=== PATIENT | female | born 1955 | race Caucasian/White ===

== ENCOUNTER 2018-06-20 08:33 | Emergency (ER) | payer MEDICARE, MEDICAID ==
[~2018-06-20] VITALS: Ht 172.7 cm; Wt 83.6 kg
[~2018-06-20 08:33] MED LIST: ALPR0.5T10 PO; AMIT100T2 PO; BUPR300T54 PO; CALC-854 PO; GABA300C PO; LEVO200T PO; PARO-62 PO; PARO40TA4 PO; TEMA15CA5 PO
[2018-06-20 08:34] VITALS: BP 141/60
[2018-06-20] MEDS ORDERED: traMADol 50MG tablet PO ONE (08:45)
[2018-06-20] MEDS ORDERED: TRAM50TA2 PO (09:06)
[2018-06-20] MEDS ORDERED: ondansetron 4mg rapidly disintigrating tab PO ONE (09:15)
== END 2018-06-20 10:42 | disposition home or self-care (01) ==
LOC: ER 08:34
DX: S52.502A Unspecified fracture of the lower end of left radius, initial encounter for closed fracture (principal); S52.602A Unspecified fracture of lower end of left ulna, initial encounter for closed fracture; Z79.899 Other long term (current) drug therapy; F41.9 Anxiety disorder, unspecified; F32.9 Major depressive disorder, single episode, unspecified; M81.0 Age-related osteoporosis without current pathological fracture; W01.198A Fall on same level from slipping, tripping and stumbling with subsequent striking against other object, initial encounter; Y93.89 Activity, other specified; Y92.89 Other specified places as the place of occurrence of the external cause; Y99.8 Other external cause status
CPT/HCPCS: 29125; 73110; 99284

== ENCOUNTER 2018-06-30 11:21 | Day surgery (SDC) | payer MEDICARE, MEDICAID ==
[2018-06-28 16:38] LABS: BASOPHILS % (AUTO) 0.3 % (0-1); EOSINOPHILS # (AUTO) 0.1 X10'3 (0-0.9); EOSINOPHILS % (AUTO) 1.1 % (0-6); LYMPHOCYTES # (AUTO) 2.2 X10'3 (1.1-4.8); LYMPHOCYTES % (AUTO) 31.4 % (21-51); MEAN CORPUSCULAR HGB CONC 32.5 % (33.0-36.5); MEAN CORPUSCULAR VOLUME 92.4 FL (78-98); MEAN PLATELET VOLUME 8.7 FL (7.4-10.4); MONOCYTES # (AUTO) 0.5 X10'3 (0-0.9); MONOCYTES % (AUTO) 6.5 % (2-12); NEUTROPHILS # (AUTO) 4.2 X10'3 (1.8-7.7); NEUTROPHILS % (AUTO) 60.7 % (42-75); PRE OP HEMATOCRIT 39.3 % (35.0-45.0); PRE OP HEMOGLOBIN 12.8 g/dL (12.0-16.0); PRE OP PLATELET COUNT 199 X10'3 (140-440); RED BLOOD COUNT 4.25 X10'6 (4.20-5.60); RED CELL DISTRIBUTION WIDTH 13.3 % (11.5-14.5)
[2018-06-28 16:57] LABS: ALBUMIN 3.3 G/DL (3.4-5.0); ALKALINE PHOSPHATASE 44 IU/L (46-116); BLOOD UREA NITROGEN 11 MG/DL (7-18); BUN/CREATININE RATIO 14.7 (6.6-38.0); CALCIUM 7.8 MG/DL (8.5-10.1); CHLORIDE 106 MMOL/L (99-107); CREATININE 0.75 MG/DL (0.40-0.90); PRE OP ALT 40 U/L (30-65); PRE OP ANION GAP 7 (8-16); PRE OP AST 26 U/L (10-37); PRE OP BILIRUB, TOTAL 0.4 MG/DL (0.0-1.0); PRE OP GLUCOSE 82 MG/DL (70-104); PRE OP SODIUM 140 MMOL/L (135-145); TOTAL CARBON DIOXIDE 26.8 MMOL/L (24-32); TOTAL PROTEIN 6.5 G/DL (6.4-8.2); eGFR 78 ML/MIN
[2018-06-28 17:02] LABS: HEMOGLOBIN A1C 4.8 % (4.5-6.2)
[2018-06-30] VITALS (7 sets, daily range): BP systolic 112–121; BP diastolic 64–70
[~2018-06-30] VITALS: Ht 172.7 cm; Wt 82.9 kg
[~2018-06-30 11:21] MED LIST changes: -AMIT100T2 PO; +DIPH1TAB PO; -PARO40TA4 PO; +SUVO10TA PO; -TEMA15CA5 PO; +TRAM50TA2 PO; +cefazolin/dext.iso 2gm/100 ML IV ONE; +famotidine 20mg tablet PO ONE; +ringers solution, lacted 1,000 ML IV SCH; +vancomycin inj 1,500 MG in normal saline 300ml IV soln IV ONE
[2018-06-30] MEDS ORDERED: BUPIVAcaine/PF 2.5mg/ml (0.25%) 10ml vial ONE (14:32)
[2018-06-30] MEDS ORDERED: fentaNYL/PF 50MCG/1 ML 2ML syringe ONE ×2 (15:11→17:07)
[2018-06-30] MEDS ORDERED: midazolam 2 mg/2 ml injection ONE ×2 (15:11→15:12)
[2018-06-30] MEDS ORDERED: propofol inj 20 ML IV ONE (15:13)
[2018-06-30] MEDS ORDERED: ROPIVAcaine 0.5% (5mg/ml) 30ml vial ONE (15:15)
[2018-06-30] MEDS ORDERED: cloNIDine hcl/PF 100mcg/ml inj ONE (15:17)
[2018-06-30] MEDS ORDERED: sevoflurane 250ml liquid IH ONE (15:26)
[2018-06-30] MEDS ORDERED: dexamethasone sod phosphate 10mg/ml inj ONE (15:26)
[2018-06-30] MEDS ORDERED: ondansetron/PF 4mg/2ml inj ONE (17:26)
[2018-06-30] MEDS ORDERED: ePHEDrine 50MG/ML INJ. ONE (17:26)
[2018-06-30] MEDS ORDERED: proCHLORperazine 10 MG/2 ml inj IV PRN (17:50)
[2018-06-30] MEDS ORDERED: ondansetron/PF 4mg/2ml inj IV PRN (17:50)
[2018-06-30] MEDS ORDERED: morphine 4 MG/ML inj SYRINge IV PRN ×2 (17:50)
[2018-06-30] MEDS ORDERED: meperidine/PF 25mg/ml syringe IV PRN ×2 (17:50)
== END 2018-06-30 18:10 | disposition home or self-care (01) ==
LOC: PAS 11:21
PROVIDERS: ATTEND Orthopaedic Surgery
DX: S52.572A Other intraarticular fracture of lower end of left radius, initial encounter for closed fracture (principal); M81.0 Age-related osteoporosis without current pathological fracture; F41.8 Other specified anxiety disorders; E03.9 Hypothyroidism, unspecified; M79.7 Fibromyalgia; I10 Essential (primary) hypertension; E11.9 Type 2 diabetes mellitus without complications; E78.5 Hyperlipidemia, unspecified; G47.33 Obstructive sleep apnea (adult) (pediatric); G89.29 Other chronic pain; G89.18 Other acute postprocedural pain; F32.9 Major depressive disorder, single episode, unspecified; Z90.49 Acquired absence of other specified parts of digestive tract; Z87.891 Personal history of nicotine dependence; Z96.642 Presence of left artificial hip joint; Z79.891 Long term (current) use of opiate analgesic; Z79.2 Long term (current) use of antibiotics; Z98.84 Bariatric surgery status; Z90.89 Acquired absence of other organs; Z98.890 Other specified postprocedural states; Z79.899 Other long term (current) drug therapy; W01.0XXA Fall on same level from slipping, tripping and stumbling without subsequent striking against object, initial encounter; Y93.41 Activity, dancing; Y92.89 Other specified places as the place of occurrence of the external cause; Y99.8 Other external cause status
CPT/HCPCS: 25609; 36415; 64417; 71046; 80053; 83036; 85025; 93005; A6257; A6449; C1713; J0690; J0735; J1100; J2250; J2405; J2704; J3010; J3370; A7000; J2795; J3490; J7120

== ENCOUNTER 2018-07-13 13:39 | Outpatient (CLI) | payer MEDICARE, MEDICAID ==
[~2018-07-13 13:39] MED LIST changes: -cefazolin/dext.iso 2gm/100 ML IV ONE; -famotidine 20mg tablet PO ONE; -ringers solution, lacted 1,000 ML IV SCH; -vancomycin inj 1,500 MG in normal saline 300ml IV soln IV ONE
[2018-07-13 13:41] VITALS: BP 141/79
== END 2018-07-13 15:15 | disposition home or self-care (01) ==
LOC: ORTHO 13:39
PROVIDERS: ATTEND Nurse Practitioner Family
DX: S52.592G Other fractures of lower end of left radius, subsequent encounter for closed fracture with delayed healing (principal); S52.692G Other fracture of lower end of left ulna, subsequent encounter for closed fracture with delayed healing; F32.9 Major depressive disorder, single episode, unspecified; M25.432 Effusion, left wrist; Z60.2 Problems related to living alone; Z87.891 Personal history of nicotine dependence; Z96.642 Presence of left artificial hip joint; W01.0XXD Fall on same level from slipping, tripping and stumbling without subsequent striking against object, subsequent encounter
CPT/HCPCS: 73100; 99214; A4590

== ENCOUNTER 2018-07-27 11:22 | Outpatient (CLI) | payer MEDICARE, MEDICAID ==
[2018-07-27 11:11] VITALS: BP 105/65
== END 2018-07-27 12:02 | disposition home or self-care (01) ==
LOC: ORTHO 11:22
PROVIDERS: ATTEND Nurse Practitioner Family
DX: S52.592G Other fractures of lower end of left radius, subsequent encounter for closed fracture with delayed healing (principal); S52.692G Other fracture of lower end of left ulna, subsequent encounter for closed fracture with delayed healing; Z79.899 Other long term (current) drug therapy; W01.0XXD Fall on same level from slipping, tripping and stumbling without subsequent striking against object, subsequent encounter
CPT/HCPCS: 73100; 99213; A4590

== ENCOUNTER 2018-08-17 10:42 | Outpatient (CLI) | payer MEDICARE, MEDICAID | END 2018-08-17 11:27 | disposition home or self-care (01) | LOC: ORTHO 10:42 | PROVIDERS: ATTEND Nurse Practitioner Family | DX: S52.592G Other fractures of lower end of left radius, subsequent encounter for closed fracture with delayed healing (principal); S52.692G Other fracture of lower end of left ulna, subsequent encounter for closed fracture with delayed healing; Z96.642 Presence of left artificial hip joint; Z98.84 Bariatric surgery status; W01.0XXD Fall on same level from slipping, tripping and stumbling without subsequent striking against object, subsequent encounter | CPT/HCPCS: 73100; 99213; A4590 ==

== ENCOUNTER 2018-09-07 09:54 | Outpatient (CLI) | payer MEDICARE, MEDICAID ==
[2018-09-07 09:51] VITALS: BP 114/62
== END 2018-09-07 10:58 | disposition home or self-care (01) ==
LOC: ORTHO 09:54
PROVIDERS: ATTEND Nurse Practitioner Family
DX: S52.592K Other fractures of lower end of left radius, subsequent encounter for closed fracture with nonunion (principal); S52.692G Other fracture of lower end of left ulna, subsequent encounter for closed fracture with delayed healing; F32.9 Major depressive disorder, single episode, unspecified; Z87.891 Personal history of nicotine dependence; Z60.2 Problems related to living alone; W01.0XXD Fall on same level from slipping, tripping and stumbling without subsequent striking against object, subsequent encounter
CPT/HCPCS: 73100; G0463

== ENCOUNTER 2018-10-03 10:21 | Outpatient (CLI) | payer MEDICARE, MEDICAID | END 2018-10-03 11:54 | disposition home or self-care (01) | LOC: ORTHO 10:21 | PROVIDERS: ATTEND Nurse Practitioner Family | DX: S52.592K Other fractures of lower end of left radius, subsequent encounter for closed fracture with nonunion (principal); S52.692 Other fracture of lower end of left ulna; F32.9 Major depressive disorder, single episode, unspecified; Z87.891 Personal history of nicotine dependence; Z60.2 Problems related to living alone; W01.0XXD Fall on same level from slipping, tripping and stumbling without subsequent striking against object, subsequent encounter | CPT/HCPCS: 73100; 99213; A4590 ==

== ENCOUNTER 2018-10-12 13:47 | Outpatient (CLI) | payer MEDICARE, MEDICAID ==
[2018-10-12 13:43] VITALS: BP 106/66
== END 2018-10-12 14:47 | disposition home or self-care (01) ==
LOC: ORTHO 13:47
PROVIDERS: ATTEND Nurse Practitioner Family
DX: S52.592K Other fractures of lower end of left radius, subsequent encounter for closed fracture with nonunion (principal); S52.692 Other fracture of lower end of left ulna; F32.9 Major depressive disorder, single episode, unspecified; F17.200 Nicotine dependence, unspecified, uncomplicated; Z60.2 Problems related to living alone; Z96.642 Presence of left artificial hip joint; W01.0XXD Fall on same level from slipping, tripping and stumbling without subsequent striking against object, subsequent encounter
CPT/HCPCS: 99213

== ENCOUNTER 2018-10-24 09:55 | Outpatient (CLI) | payer MEDICARE, MEDICAID ==
[2018-10-24 09:57] VITALS: BP 110/73
== END 2018-10-24 10:26 | disposition home or self-care (01) ==
LOC: ORTHO 09:55
PROVIDERS: ATTEND Nurse Practitioner Family
DX: S52.592G Other fractures of lower end of left radius, subsequent encounter for closed fracture with delayed healing (principal); S52.692G Other fracture of lower end of left ulna, subsequent encounter for closed fracture with delayed healing; X58.XXXD Exposure to other specified factors, subsequent encounter; Z98.84 Bariatric surgery status
CPT/HCPCS: 73100; 99213

== ENCOUNTER 2018-11-11 10:30 | Emergency (ER) | payer MEDICARE, MEDICAID ==
[~2018-11-11] VITALS: Ht 172.7 cm; Wt 79.1 kg
[2018-11-11] MEDS ORDERED: CELE-193 PO (12:09)
[2018-11-11 12:53] VITALS: BP 127/55
== END 2018-11-11 12:55 | disposition home or self-care (01) ==
LOC: ER 10:30
DX: R07.81 Pleurodynia (principal); I10 Essential (primary) hypertension; G43.909 Migraine, unspecified, not intractable, without status migrainosus; E78.00 Pure hypercholesterolemia, unspecified; K21.9 Gastro-esophageal reflux disease without esophagitis; E11.9 Type 2 diabetes mellitus without complications; E03.9 Hypothyroidism, unspecified; M19.90 Unspecified osteoarthritis, unspecified site; G89.29 Other chronic pain; M54.9 Dorsalgia, unspecified; M81.0 Age-related osteoporosis without current pathological fracture; Z90.49 Acquired absence of other specified parts of digestive tract; W01.0XXA Fall on same level from slipping, tripping and stumbling without subsequent striking against object, initial encounter; Y93.89 Activity, other specified; Y92.098 Other place in other non-institutional residence as the place of occurrence of the external cause; Y99.8 Other external cause status
CPT/HCPCS: 71046; 99284

== ENCOUNTER 2018-11-16 11:32 | Outpatient (CLI) | payer MEDICARE, MEDICAID ==
[~2018-11-16 11:32] MED LIST changes: +CELE-193 PO
[2018-11-16 11:42] VITALS: BP 125/70
== END 2018-11-16 12:41 | disposition home or self-care (01) ==
LOC: ORTHO 11:32
PROVIDERS: ATTEND Orthopaedic Surgery
DX: S52.592D Other fractures of lower end of left radius, subsequent encounter for closed fracture with routine healing (principal); Z98.84 Bariatric surgery status; Z96.642 Presence of left artificial hip joint; X58.XXXD Exposure to other specified factors, subsequent encounter
CPT/HCPCS: 73110; 99213

== ENCOUNTER 2023-01-24 10:01 | Emergency (ER) | payer BC, MEDICAID ==
[~2023-01-24] VITALS: Ht 172.7 cm; Wt 77.0 kg
[~2023-01-24 10:01] MED LIST changes: -BUPR300T54 PO; +BUPR300T99 PO; -CELE-193 PO; +PARO-141 PO; -PARO-62 PO
[2023-01-24 10:05] VITALS: BP 156/76
[2023-01-24] MEDS ORDERED: celeCOXIB 100mg capsule PO ONE (12:10)
--- NOTE | 2023-01-24 12:14 | NUR ---
Waiting for med to be delivered from pharmacy.
[2023-01-24] MEDS ORDERED: CELE-193 PO (13:43)
== END 2023-01-24 13:54 | disposition home or self-care (01) ==
LOC: ER 10:02
DX: S30.0XXA Contusion of lower back and pelvis, initial encounter (principal); G43.909 Migraine, unspecified, not intractable, without status migrainosus; E78.00 Pure hypercholesterolemia, unspecified; I10 Essential (primary) hypertension; K21.9 Gastro-esophageal reflux disease without esophagitis; E11.9 Type 2 diabetes mellitus without complications; E03.9 Hypothyroidism, unspecified; M19.90 Unspecified osteoarthritis, unspecified site; Z90.49 Acquired absence of other specified parts of digestive tract; W19.XXXA Unspecified fall, initial encounter; Y93.89 Activity, other specified; Y92.89 Other specified places as the place of occurrence of the external cause; Y99.8 Other external cause status
CPT/HCPCS: 72220; 73502; 99284

== ENCOUNTER 2024-09-27 08:50 | Day surgery (SDC) | payer BC, MEDICAID ==
[2024-09-24 13:16] LABS: BASOPHILS # (AUTO) 0.1 X10'3 (0-0.2); BASOPHILS % (AUTO) 0.8 % (0-1); EOSINOPHILS # (AUTO) 0.1 X10'3 (0-0.9); EOSINOPHILS % (AUTO) 1.2 % (0-6); LYMPHOCYTES # (AUTO) 3.4 X10'3 (1.1-4.8); LYMPHOCYTES % (AUTO) 29.6 % (21-51); MEAN CORPUSCULAR HEMOGLOBIN 30.8 PG (27.0-31.0); MEAN CORPUSCULAR HGB CONC 32.5 g/dL (33.0-36.5); MEAN CORPUSCULAR VOLUME 94.5 FL (78-98); MONOCYTES # (AUTO) 0.7 X10'3 (0-0.9); MONOCYTES % (AUTO) 6.5 % (2-12); NEUTROPHILS % (AUTO) 61.9 % (42-75); PRE OP HEMATOCRIT 44.7 % (35.0-45.0); PRE OP HEMOGLOBIN 14.5 g/dL (12.0-16.0); PRE OP PLATELET COUNT 216 X10'3 (140-440); PRE OP WHITE BLOOD COUNT 11.4 10'3 (4.8-10.8); RED BLOOD COUNT 4.73 X10'6 (4.20-5.60); RED CELL DISTRIBUTION WIDTH 13.7 % (11.5-14.5)
[2024-09-24 13:24] LABS: ALBUMIN 3.7 G/DL (3.4-5.0); ALBUMIN/GLOBULIN RATIO 1.1 (1.1-1.5); ALKALINE PHOSPHATASE 84 IU/L (46-116); BLOOD UREA NITROGEN 20 MG/DL (7-18); BUN/CREATININE RATIO 21.1 (10.0-20.0); CALCIUM 8.3 MG/DL (8.5-10.1); CHLORIDE 112 MMOL/L (99-107); CREATININE 0.95 MG/DL (0.40-0.90); PRE OP ANION GAP 6 (8-16); PRE OP AST 43 U/L (10-37); PRE OP BILIRUB, TOTAL 0.5 MG/DL (0.0-1.0); PRE OP GLUCOSE 95 MG/DL (70-104); PRE OP POTASSIUM 3.9 MMOL/L (3.4-5.1); PRE OP SODIUM 150 MMOL/L (135-145); TOTAL CARBON DIOXIDE 31.8 MMOL/L (24-32); TOTAL PROTEIN 7.1 G/DL (6.4-8.2); eGFR 58 ML/MIN
[2024-09-24 13:37] LABS: PRE OP ALT 84 U/L (30-65)
[2024-09-27] VITALS (10 sets, daily range): BP systolic 118–164; BP diastolic 62–95; PULSE 67–82; RESP 13–21; TEMP 98.8; O2SAT 90–98
[~2024-09-27] VITALS: Ht 172.7 cm; Wt 73.0 kg
[~2024-09-27 08:50] MED LIST changes: -ALPR0.5T10 PO; +ALPR0.5T9 PO; +BACL10TA2 PO; -BUPR300T99 PO; -CALC-854 PO; +CELE-148 PO; +DICY20TA2 PO; -GABA300C PO; +LEVO150T8 PO; -LEVO200T PO; +MIRT-88 PO; -PARO-141 PO; +PARO40TA4 PO; -SUVO10TA PO; -TRAM50TA2 PO; +[UNRECOGNIZED DRUG - CODE]; +ringers solution, lacted 1,000 ML IV SCH
[2024-09-27] MEDS ORDERED: BUPIVAcaine 2.5mg/ml inj 50ml vial (contains preservative) ONE (09:13)
[2024-09-27] MEDS ORDERED: bacitracin 15gm ointment TP ONE (09:13)
[2024-09-27] MEDS ORDERED: morphine 2 MG/ML inj. syringe IV PRN (09:20)
[2024-09-27] MEDS ORDERED: ondansetron/PF 4mg/2ml inj IV PRN (09:20)
[2024-09-27] MEDS ORDERED: morphine 4 MG/ML inj SYRINge IV PRN (09:20)
[2024-09-27] MEDS ORDERED: hydrALAZINE 20mg/ml inj. IV PRN (09:20)
[2024-09-27] MEDS ORDERED: ringers solution, lacted 1,000 ML IV SCH (09:20)
[2024-09-27] MEDS ORDERED: fentaNYL/PF 50MCG/1 ML 2ML syringe IV PRN ×2 (09:20)
[2024-09-27] MEDS ORDERED: labetalol 20mg/4ml (5mg/ml) syringe IV PRN (09:20)
[2024-09-27] MEDS: ceFAZolin 2gm in dextrose, iso 50 ML IV ONE (09:27)
[2024-09-27] MEDS: famotidine 20mg tablet PO ONE (09:34)
[2024-09-27] MEDS ORDERED: sevoflurane 250ml liquid IH ONE (10:20)
[2024-09-27] MEDS ORDERED: fentaNYL/PF 50MCG/1 ML 2ML syringe ONE ×2 (10:24→11:54)
[2024-09-27] MEDS ORDERED: ROPIVAcaine 0.5% (5mg/ml) 30ml vial ONE (10:25)
[2024-09-27] MEDS ORDERED: midazolam 1 mg/ML 2ml injection ONE (10:25)
[2024-09-27] MEDS ORDERED: ondansetron/PF 4mg/2ml inj ONE (10:25)
[2024-09-27] MEDS ORDERED: propofol inj 20 ML IV ONE (10:25)
[2024-09-27] MEDS ORDERED: dexamethasone sod phosphate 4mg/ml inj. ONE (10:25)
[2024-09-27] MEDS ORDERED: LIDOcaine 2% (20mg/ml) 5ml vial ONE (10:25)
[2024-09-27] MEDS ORDERED: acetaminophen 1,000mg/100ml IV 100 ML IV ONE (10:39)
[2024-09-27] MEDS ORDERED: labetalol 20mg/4ml (5mg/ml) syringe IV ONE (11:38)
== END 2024-09-27 13:52 | disposition home or self-care (01) ==
LOC: PAS 08:50
PROVIDERS: ATTEND Podiatrist Foot & Ankle Surgery
DX: M19.072 Primary osteoarthritis, left ankle and foot (principal); M77.42 Metatarsalgia, left foot; M20.22 Hallux rigidus, left foot; M72.2 Plantar fascial fibromatosis; M20.12 Hallux valgus (acquired), left foot; M24.875 Other specific joint derangements left foot, not elsewhere classified; Z79.899 Other long term (current) drug therapy; Z98.890 Other specified postprocedural states; Z98.84 Bariatric surgery status; Z87.891 Personal history of nicotine dependence
CPT/HCPCS: 20902; 28112; 28750; 36415; 64450; 80053; 82948; 85025; 93005; A6223; C1713; J0131; J0690; J1100; J2003; J2250; J2405; J2704; J2795; J3010; J3490; J7030; J7120; Z7506; Z7508; Z7512; A4215; A4618; A6449; A7000

== ENCOUNTER 2025-05-08 09:13 | Emergency (ER) | payer BC, MEDICAID ==
[~2025-05-08] VITALS: Ht 167.6 cm; Wt 77.3 kg
[~2025-05-08 09:13] MED LIST changes: +ASPI-1265 PO; +DEUT12TA PO; -DICY20TA2 PO; -[UNRECOGNIZED DRUG - CODE]; -ringers solution, lacted 1,000 ML IV SCH
--- NOTE | 2025-05-08 09:36 | Physician Documentation ---
History of Present Illness ~ Chief Complaint: Shoulder pain Stated Complaint: FALL SHOULDER PAIN Time Seen by MD: 09:32 Primary Medical Doctor: Dr. Kelly HPI 69-year-old female presents to the ED after falling backwards and bracing with her right arm this morning. She reports severe pain in her shoulder and upper right arm. Denies any numbness or tingling. Patient does have a history of osteoporosis and denies being a diabetic. Denies any head strike negative on thinners Day of Onset: May 08, 2025 Tetanus within 5 years?: Yes Medication Reconciliation Allergies: Uncoded Allergies: SULFA (Allergy, Mild, RASH, 10/11/24) Scheduled Alprazolam (Alprazolam), 1 TAB PO TID, (Reported) Aspirin (Aspirin), 1 TAB PO DAILY, (Reported) Deutetrabenazine (Austedo), 30 MG PO DAILY, (Reported) Levothyroxine Sodium (Levothyroxine Sodium), 1 TAB PO DAILY, (Reported) Mirtazapine (Mirtazapine), 1 TAB PO HS, (Reported) Paroxetine HCl (Paroxetine HCl), 1 TAB PO DAILY, (Reported) Scheduled PRN Baclofen (Baclofen), 1 TAB PO BID PRN for muscle spasm, (Reported) Celecoxib (Celecoxib), 1 CAP PO BID PRN for pain, (Reported) Diphenoxylate HCl/Atropine (Lomotil 2.5-0.025 mg Tablet), 1 TAB PO Q8H PRN for diarrhea, (Reported) Hydrocodone Bit/Acetaminophen 5/325 MG ([place] 5/325 MG), 1 TAB PO Q6H PRN for pain Past Medical History Past Medical History: Headache, Migraine, Peripheral Neuropathy, Vertigo, Cataracts, High Cholesterol, Hypertension, Sleep Apnea, GERD, UTI, Diabetes, Hypothyroidism, Arthritis, Chronic Pain, Chronic Back Pain, Extremity Fracture, Fibromyalgia, Osteoporosis, MRSA Abscess, Anxiety, Depression Past Surgical History: cholecystectomy, orthopedic surgeries Alcohol Use: None Drug Use: marijuana Lives with: Alone Lives In: Home Occupation: disabled Review of Systems All Other Systems at this time: Reviewed and Negative ROS As stated above in the HPI, otherwise all systems are reviewed and negative. Physical Exam Vital Signs: Temperature: 97.5, Source: Temporal, Heart Rate: 85, Respiratory Rate: 16, BP: 172/102, Pulse Oximetry: 99, Weight: 77.270 Oxygen Flow Rate: 0 Physical Exam General: Alert, no apparent distress. Respiratory: Lungs clear, no respiratory distress. Extremities: Decreased range of motion notable deformity in the right humeral region, Neurologic: Oriented x4. Psychiatric: Normal mood and affect. Skin: Normal color, warm and dry. No edema, no ecchymosis. Progress Results/Orders Results/Orders Completed Orders - RICO HYLTON TICKET SCHEDULER Oxycodone/Acetaminophen Tablet (Percocet (05/08/25 09:40) Medications Received in ER Medications (Trade) Dose Ordered Sig/Roverto Route PRN Reason Start Time Stop Time Status Last Admin Dose Admin (Percocet 10-325 mg tab) 1 tab ONCE ONCE PO 05/08/25 09:40 05/08/25 09:41 DC 05/08/25 09:49 1 TAB Vital Signs 05/08/25 05/08/25 05/08/25 09:16 09:39 09:49 Temp 97.5 Pulse 85 Resp 16 18 18 B/P (MAP) 172/102 Pulse Ox 99 O2 Flow Rate 0 Medical Decision Making Findings This 69-year-old female has what I appreciate as a proximal humeral head fracture which is comminuted and displaced. Her pulse can be felt in both arms distally patient is not in acute distress. Discussed the case with the Dr. Blum. He agrees to take on the patient and perform outpatient surgery. He recommended a sling and to discharge the patient with pain medication. there was nono evidence of skin tenting which would have required emergent surgery. Differential Dx:Considerations: Include: AC separation, Adhesive capsulitis, arthritis, Bicipital tendonitis, Calcific tendonitis, Cervical disc disease, Contusion, Dislocation, Fracture: Humerus, Fracture: Scapula, Fracture: Clavicle, Gallbladder Disease, Hematoma, Impingement syndrome, Myocardial infarction, Neurovascular Injury, Rotator cuff injury, SC dislocation, Sprain, Subacromial bursitis, other Departure Disposition: 01 HOME / SELF CARE / HOMELESS Impression: Primary Impression: Shoulder pain Additional Impression: Fracture of humerus Condition: Improved Discharge Instructions: Shoulder Fracture Referrals: NO PRIMARY CARE PROVIDER (PCP) SHLOMO BLUM Jr., MD Prescriptions Hydrocodone Bit/Acetaminophen 5/325 MG ([place] 5/325 MG) 5 Mg/325 Mg Tablet 1 TAB PO Q6H PRN for pain, #14 TAB Prov: RICO HYLTON NP 05/08/25 Education Educated: Patient Educated regarding: diagnosis Signature Scribe Signature: g Attestation: Scribed for Rico Hylton Gas Collection System Operator by Rico Hylton - [place] . 05/08/25 10:05 RICO HYLTON NP May 08, 2025 09:36
--- NOTE | 2025-05-08 09:48 | RADIOLOGY REPORT ---
EXAM: DI SHOULDER, COMPLETE (MIN 2 VWS) CLINICAL INDICATION: MECHANICAL FALL TECHNIQUE: DI SHOULDER, COMPLETE (MIN 2 VWS) Comparison: None FINDINGS/IMPRESSION: Displaced and comminuted proximal right humeral fracture.
[2025-05-08] MEDS ORDERED: HYDR-3965 PO (10:08)
[2025-05-08 10:50] VITALS: BP 130/98; PULSE 66; RESP 18; TEMP 97.5; O2SAT 99
[2025-05-10] MEDS ORDERED: [UNRECOGNIZED DRUG - CODE] PO (18:40)
[2025-05-10] MEDS ORDERED: HYDR-3964 PO (18:41)
== END 2025-05-08 10:56 | disposition home or self-care (01) ==
LOC: ER 09:13
DX: S42.301A Unspecified fracture of shaft of humerus, right arm, initial encounter for closed fracture (principal); E03.9 Hypothyroidism, unspecified; E11.42 Type 2 diabetes mellitus with diabetic polyneuropathy; E78.00 Pure hypercholesterolemia, unspecified; G47.30 Sleep apnea, unspecified; F41.9 Anxiety disorder, unspecified; F32.A Depression, unspecified; K21.9 Gastro-esophageal reflux disease without esophagitis; I10 Essential (primary) hypertension; G43.909 Migraine, unspecified, not intractable, without status migrainosus; M19.90 Unspecified osteoarthritis, unspecified site; M79.7 Fibromyalgia; M81.0 Age-related osteoporosis without current pathological fracture; Z88.2 Allergy status to sulfonamides; Z90.49 Acquired absence of other specified parts of digestive tract; Z79.82 Long term (current) use of aspirin; F15.90 Other stimulant use, unspecified, uncomplicated; W19.XXXA Unspecified fall, initial encounter; Y93.89 Activity, other specified; Y92.89 Other specified places as the place of occurrence of the external cause; Y99.8 Other external cause status
CPT/HCPCS: 73030; 99284; A4565

== ENCOUNTER 2025-05-13 08:02 | Day surgery (SDC) | payer BC, MEDICAID ==
[2025-05-13] VITALS (11 sets, daily range): BP systolic 138–176; BP diastolic 68–110; PULSE 76–107; RESP 12–27; TEMP 97.2; O2SAT 94–100
[~2025-05-13] VITALS: Ht 172.7 cm; Wt 72.1 kg
[~2025-05-13 08:02] MED LIST changes: -DEUT12TA PO; +HYDR-3964 PO; +[UNRECOGNIZED DRUG - CODE] PO; +ceFAZolin 2gm/dext,iso 50mL 50 ML IV ONE
[2025-05-13 09:31] LABS: MEAN PLATELET VOLUME 8.9 FL (7.4-10.4); PRE OP HEMATOCRIT 43.6 % (35.0-45.0); PRE OP HEMOGLOBIN 14.4 g/dL (12.0-16.0); PRE OP PLATELET COUNT 243 X10'3 (140-440); PRE OP WHITE BLOOD COUNT 9.4 10'3 (4.8-10.8); RED CELL DISTRIBUTION WIDTH 14.0 % (11.5-14.5)
[2025-05-13] MEDS: ringers solution, lacted 1,000 ML IV SCH (09:32)
[2025-05-13] MEDS ORDERED: BUPIVAcaine 2.5mg/ml inj 50ml vial (contains preservative) ONE (09:32)
[2025-05-13 09:42] LABS: CREATININE 0.78 MG/DL (0.40-0.90); PRE OP ALT 58 U/L (30-65); PRE OP ANION GAP 9 (8-16); PRE OP AST 41 U/L (10-37); PRE OP BILIRUB, TOTAL 0.7 MG/DL (0.0-1.0); PRE OP GLUCOSE 114 MG/DL (70-104); PRE OP POTASSIUM 3.5 MMOL/L (3.4-5.1); PRE OP SODIUM 146 MMOL/L (135-145); TOTAL CARBON DIOXIDE 30.2 MMOL/L (24-32); eCRCL 68 ML/MIN; eGFR 73 ML/MIN
[2025-05-13] MEDS ORDERED: cloNIDine hcl/PF 100mcg/ml inj ONE (09:50)
[2025-05-13] MEDS ORDERED: fentaNYL/PF 50MCG/1 ML 2ML syringe ONE (09:52)
[2025-05-13] MEDS ORDERED: midazolam 1 mg/ML 2ml injection ONE (09:53)
[2025-05-13] MEDS ORDERED: ROPIVAcaine 0.5% (5mg/ml) 30ml vial ONE (10:28)
[2025-05-13] MEDS ORDERED: LIDOcaine 2% (20mg/ml) 5ml vial ONE (10:28)
[2025-05-13] MEDS ORDERED: dexamethasone sod phosphate 4mg/ml inj. ONE (10:28)
[2025-05-13] MEDS ORDERED: ondansetron/PF 4mg/2ml inj ONE (10:28)
[2025-05-13] MEDS ORDERED: propofol inj 20 ML IV ONE (10:28)
[2025-05-13] MEDS ORDERED: LIDOcaine 1%/PF 5ML 10 MG/ML VIAL ONE (10:28)
[2025-05-13] MEDS ORDERED: bacitracin 15gm ointment TP ONE (11:29)
[2025-05-13] MEDS ORDERED: ringers solution, lacted 1,000 ML IV SCH (11:30)
[2025-05-13] MEDS ORDERED: morphine 4 MG/ML inj SYRINge IV PRN (11:30)
[2025-05-13] MEDS ORDERED: ondansetron/PF 4mg/2ml inj IV PRN (11:30)
[2025-05-13] MEDS ORDERED: HYDROmorphone/PF 0.2 MG/ML SYRINGE IV PRN ×2 (11:30)
[2025-05-13] MEDS ORDERED: hydrALAZINE 20mg/ml inj. IV PRN (11:30)
[2025-05-13] MEDS ORDERED: acetaminophen 1,000mg/100ml IV 100 ML IV PRN (11:30)
[2025-05-13] MEDS: labetalol 20mg/4ml (5mg/ml) syringe IV PRN (12:36)
--- NOTE | 2025-05-13 13:04 | OPERATIVE REPORT ---
Operative Report Providers to ~ Date of Procedure: May 13, 2025 Pre-Operative Diagnosis: Right proximal humerus fracture closed Post-Operative Diagnosis SAME as PRE-Op Procedure Performed Open reduction internal fixation of right proximal humerus shaft fracture Surgeon: Jesus Mar MD Catalytic Converter Operator None Anesthesiologist: Candice Cronin Type of Anesthesia: General Findings: Prosthetics\Implants used: Bone bridge 3.5 mm proximal humeral plate three hole, right with nine screws Estimated Blood Loss: 25 mL Specimen Removed: None Description of Procedure: The patient is a 69-year-old who four days ago suffered a fall and a proximal humerus fracture with a complete displacement. Surgery is indicated to stabilize fracture. Risks and benefits were discussed with the patient some of those include infection, bleeding, nerve or vessel damage, shoulder weakness and failure to heal. She agreed to proceed. She was brought to the operating room with the block was given along with a general anesthetic. She was placed in the beach chair position of the right arm and shoulder were prepped and draped in usual manner. A standard deltopectoral incision was made with dissection down to the bone. We risks some soft tissue damage from the fracture and hematoma was evacuated. Small vessels were cauterized and care was taken not to disrupt any essential nerves in the area. Once the fracture fragments were identified fluoro was brought in and the fracture was then reduced and held tentatively by K-wires. The plate was then placed under fluoro guidance and affixed 1st proximally then distally as well. Care was taken not to disrupt the rotator mechanism. Fluoro imaging showed excellent fixation and anatomic reduction of the fracture. The incision was then irrigated and closed in layers. A sterile dressing was applied. The ryanne ent was awakened and taken to the recovery room in stable condition and tolerated the procedure well. JESUS MAR Jr., MD May 13, 2025 13:04
== END 2025-05-13 12:55 | disposition home or self-care (01) ==
LOC: PAS 08:02
PROVIDERS: ATTEND Orthopaedic Surgery Hand Surgery
DX: S42.291A Other displaced fracture of upper end of right humerus, initial encounter for closed fracture (principal); M79.7 Fibromyalgia; M81.0 Age-related osteoporosis without current pathological fracture; Z87.891 Personal history of nicotine dependence; Z79.891 Long term (current) use of opiate analgesic; Z79.899 Other long term (current) drug therapy; Z96.652 Presence of left artificial knee joint; Z98.84 Bariatric surgery status; Z98.890 Other specified postprocedural states; Z88.2 Allergy status to sulfonamides; Z88.8 Allergy status to other drugs, medicaments and biological substances; W18.30XA Fall on same level, unspecified, initial encounter; Y93.89 Activity, other specified; Y92.89 Other specified places as the place of occurrence of the external cause; Y99.8 Other external cause status
CPT/HCPCS: 23615; 36415; 73060; 80053; 85025; C1713; J0735; J1100; J2003; J2250; J2405; J2704; J2795; J3010; J3490; J7030; J7120; Z7506; Z7508; Z7512; 76000; A4565; A4618; A6449; A7000